=== PATIENT | female | born 1955 | race Caucasian/White ===

== ENCOUNTER 2016-05-10 02:04 | Emergency (ER) | payer OTHER ==
[~2016-05-10] VITALS: Ht 162.6 cm; Wt 72.6 kg
--- NOTE | 2016-05-10 02:27 | ED DYSPNEA/ASTHMA COMPLAINT ---
History of Present Illness General Chief Complaint: Dyspnea (COPD, CHF, Other) Stated Complaint: DIFF BREATHING O2 SAT 95% 0N RM AIR Source: patient, family, old records Exam Limitations: no limitations Vital Signs & Intake/Output Vital Signs & Intake/Output Vital Signs Date Time Temp Pulse Resp B/P Pulse O2 O2 Flow FiO2 Ox Delivery Rate 05/10 0231 97 Room Air 05/10 0220 97.1 81 20 142/82 95 Room Air Allergies Coded Allergies: No Known Drug Allergies (NKDA 05/10/16) Triage Note: PT TO ED C/O DIFF BREATHING FOR 2 MONTHS. WORSE AT NIGHT. O2 SAT 95% ON RA. DR GALAVIZ AT BEDSIDE TO [facility] PT Triage Nurses Notes Reviewed? yes HPI: Presents with difficulty breathing that started proximally 6 months ago. The symptoms seem worse at night. Patient has been seen by her primary care physician and was placed on inhalers as well as steroids. Patient was feeling better however the steroids ran out and the inhalers are longer working. Patient states symptoms seem worse at night. Patient got tired of feeling she can't breathe so comes to the emergency room for evaluation. Patient denies any fevers or chills. She has an occasional nonproductive cough. There is no orthopnea. Positive dyspnea on exertion. No chest pain or chest tightness. Past History Travel History Traveled to [place] past 21 day No Medical History Any Pertinent Medical History? see below for history Psychiatric: depression Surgical History Surgical History: non-contributory Psychosocial History Tobacco Use: Never used ETOH Use: denies use Illicit Drug Use: denies illicit drug use Family History Hx Contributory? No Review of Systems Review of Systems Constitutional: Reports: no symptoms. EENTM: Reports: no symptoms. Respiratory: Reports: see HPI, short of breath, wheezing. Cardiovascular: Reports: no symptoms. GI: Reports: no symptoms. Genitourinary: Reports: no symptoms. Musculoskeletal: Reports: no symptoms. Skin: Reports: no symptoms. Neurological/Psychological: Reports: no symptoms. Hematologic/Endocrine: Reports: no symptoms. Immunologic/Allergic: Reports: no symptoms. All Other Systems: Reviewed and Negative Physical Exam Physical Exam General Appearance: well developed/nourished, alert, awake, anxious, mild distress Head: atraumatic, normal appearance Eyes: Bilateral: PERRL, EOMI. Ears, Nose, Throat: normal pharynx, normal ENT inspection, hearing grossly normal Neck: normal inspection, supple, full range of motion Respiratory: chest non-tender, wheezing Cardiovascular: regular rate/rhythm, normal peripheral pulses Gastrointestinal: normal bowel sounds, soft, non-tender, no organomegaly Extremities: normal inspection, normal capillary refill, normal range of motion, no edema Neurologic/Psych: no motor/sensory deficits, awake, alert, oriented x 3, normal gait, normal mood/affect Skin: intact, normal color, warm/dry Lymphatic: no anterior cervical matthew Core Measures ACS in differential dx? No Severe Sepsis Present: No Septic Shock Present: No Progress Differential Diagnosis: asthma, bronchitis, COPD, pulmonary embolism, pneumonia, pneumothorax Plan of Care: Orders Procedure Date/time Status TROPONIN LEVEL 05/10 225 Complete COMPREHENSIVE METABOLIC PANEL 05/10 225 Complete CBC WITHOUT DIFFERENTIAL 05/10 225 Complete EKG 05/10 225 Active Laboratory Tests 05/10/16 0230: Anion Gap 9, Estimated GFR > 60, BUN/Creatinine Ratio 22.9, Glucose 104 H, Calcium 9.7, Total Bilirubin 0.5, AST 25, ALT 47, Alkaline Phosphatase 88, Troponin I < 0.01, Total Protein 6.8, Albumin 4.0, Globulin 2.8, Albumin/ Globulin Ratio 1.4, CBC w Diff NO MAN DIFF REQ, RBC 4.84, MCV 87.4, MCH 29.1, RDW 13.4, MPV 10.8 H, Gran % 41.8 L, Lymphocytes % 38.7, Monocytes % 7.5, Eosinophils % 11.5 H, Basophils % 0.5, Absolute Granulocytes 3.4, Absolute Lymphocytes 3.1, Absolute Monocytes 0.6, Absolute Eosinophils 0.9, Absolute Basophils 0, PUBS MCHC 33.3 Diagnostic Imaging: Viewed by Me: Radiology Read. Discussed w/RAD: Radiology Read. CXR Impression: PATIENT: LIU JOVEL PRESENT AGE: 61 PATIENT ACCOUNT NO: [id number] : 56 LOCATION: [facility] ORDERING PHYSICIAN: JAVY GALAVIZ MD SERVICE DATE: 05/10/16 EXAM TYPE: RAD - XRY-CHEST XRAY, PA AND LATERAL EXAMINATION: XR CHEST CLINICAL INFORMATION: Pneumonia. Dyspnea. COMPARISON: None TECHNIQUE: 2 views of the chest were obtained. FINDINGS: Lungs are clear. No pulmonary vascular congestion. No infiltrate or pleural effusion. The heart size is normal. The cardiac and mediastinal contours are normal. There are multilevel degenerative changes of dorsal spine. IMPRESSION: Unremarkable examination. DICTATED BY: NATASHA LAMBERT MD DATE/TIME DICTATED:05/10/16311 RESEARCH ANALYST:MAMI DATE/TIME TRANSCRIBED:311 CONFIDENTIAL, DO NOT COPY WITHOUT APPROPRIATE AUTHORIZATION. < Electronically signed in Other Vendor System> SIGNED BY: NATASHA LAMBERT MD 315 Initial ED EKG: NSR, no ST T wave changes Comments: Patient is feeling better after the DuoNeb and steroids. Departure Departure Disposition: HOME OR SELF CARE Condition: Stable Clinical Impression Primary Impression: Dyspnea Referrals: FRANCES GONZALEZ,TARYN UNKNOWN (PCP/Family) Additional Instructions: FOLLOW UP WITH YOUR BI ARCHITECT RETURN FOR ANY CONCERNS Departure Forms: Customer Survey General Discharge Information Prescriptions: Current Visit Scripts Prednisone 1 TAB PO DAILY #30 TAB TAKE 4 TABS FOR 3 DAYS THEN TAKE 3 TABS FOR 3 DAYS THEN TAKE 2 TABS FOR 3 DAYS THEN TAKE 1 TAB FOR 3 DAYS Benzonatate (Tessalon Perle) 1 CAP PO TID PRN COUGH #30 CAP Critical Care Note Critical Care Note Critical Care Time: non-applicable
[2016-05-10 02:36] LABS: ABSOLUTE BASOPHIL COUNT 0 /CUMM (0.0-0.2); ABSOLUTE EOSINOPHIL COUNT 0.9 /CUMM (0.0-0.7); ABSOLUTE GRANULOCYTE CT 3.4 /CUMM (1.4-6.5); ABSOLUTE LYMPH COUNT 3.1 /CUMM (1.2-3.4); ABSOLUTE MONOCYTE COUNT 0.6 /CUMM (0.10-0.60); BASOPHIL % 0.5 % (0.0-2.0); EOSINOPHIL % 11.5 % (0-5); GRANULOCYTE % 41.8 % (42.2-75.2); HEMATOCRIT 42.3 % (37-47); MEAN CORPUSCULAR HGB 29.1 PG (27.0-31.0); MEAN CORPUSCULAR HGB CONC 33.3 G/DL (33.0-37.0); MEAN CORPUSCULAR VOLUME 87.4 FL (81.0-99.0); MEAN PLATELET VOLUME 10.8 FL (7.4-10.4); PLATELET COUNT 232 /CUMM (130-400); RBC DISTRIBUTION WIDTH 13.4 % (11.5-14.5); RED BLOOD CELL CT 4.84 /CUMM (4.20-5.40); WHITE BLOOD CELL COUNT 8.1 /CUMM (4.8-10.8)
--- NOTE | 2016-05-10 03:16 | RADIOLOGY REPORT ---
EXAMINATION: XR CHEST CLINICAL INFORMATION: Pneumonia. Dyspnea. COMPARISON: None TECHNIQUE: 2 views of the chest were obtained. FINDINGS: Lungs are clear. No pulmonary vascular congestion. No infiltrate or pleural effusion. The heart size is normal. The cardiac and mediastinal contours are normal. There are multilevel degenerative changes of dorsal spine. IMPRESSION: Unremarkable examination.
[2016-05-10] MEDS ORDERED: PREDNISONE10 M2 PO (03:27)
[2016-05-10] MEDS ORDERED: TESSALON PERLE100 M1 PO (03:27)
[2016-05-10 03:36] VITALS: BP 138/78
== END 2016-05-10 03:36 ==
LOC: ERH 02:04
PROVIDERS: Emergency Medicine
DX: R06.00 Dyspnea, unspecified (principal)
CPT/HCPCS: 1263; 93005; 93010